=== PATIENT | male | born 1960 | race Caucasian/White ===

== ENCOUNTER 2025-09-08 17:03 | Emergency (ER) | payer OTHER, MEDICARE ==
[~2025-09-08] VITALS: Ht 167.6 cm; Wt 111.1 kg
[2025-09-08] MEDS ORDERED: METHOCARBAMOL750 M1 PO (18:25)
[2025-09-08] MEDS ORDERED: HYDROCODONE-AC1 EAC1 PO (18:25)
[2025-09-08] MEDS ORDERED: Ondansetron4 MG PO (18:25)
[2025-09-08] MEDS ORDERED: Ondansetron 4 MG 2 TAB ED PACK PO SCH (18:40)
[2025-09-08] MEDS ORDERED: METHOCARBAMOL 750 MG TAB PO ONE (18:40)
[2025-09-08] MEDS ORDERED: Acetaminophen/Hydrocodone Bi 3 TAB PACK PO PRN (18:40)
== END 2025-09-08 18:45 | disposition home or self-care (01) ==
LOC: ED 17:03
DX: S09.90XA Unspecified injury of head, initial encounter (principal); M62.838 Other muscle spasm; V49.9XXA Car occupant (driver) (passenger) injured in unspecified traffic accident, initial encounter; Y93.89 Activity, other specified; Y92.410 Unspecified street and highway as the place of occurrence of the external cause; Y99.8 Other external cause status